=== PATIENT | male | born 1945 | race African-American/Black ===

== ENCOUNTER → 2016-11-15 | Outpatient (CLI) | payer MEDICARE, MEDICAID ==
[~2016-11-15] MED LIST: REGADENOSON 0.4 MG/5 ML IV ONE
== END | disposition home or self-care (01) ==
LOC: NM 07:09
DX: Z01.818 Encounter for other preprocedural examination (principal); I10 Essential (primary) hypertension; J44.9 Chronic obstructive pulmonary disease, unspecified; R00.0 Tachycardia, unspecified
CPT/HCPCS: 78452; 93017; A9500; J2785

== ENCOUNTER → 2016-11-23 | Outpatient (CLI) | payer MEDICARE, MEDICAID ==
[2016-11-23 13:43] LABS: BG BASE EXCESS -1.2 mmol/L (-2.0-2.0); BG CARBOXYHEMOGLOBIN 0.8 % (0.5-1.5); BG DEOXYHEMOGLOBIN 3.3 % (0.0-5.0); BG FRACTION INSPIRED OXYGEN 32; BG HCO3 ACT 22.2 mmol/L (22.0-26.0); BG METHEMOGLOBIN 0.2 % (0.0-1.5); BG OXYGEN SATURATION 96.7 % (92.0-98.5); BG OXYHEMOGLOBIN 95.7 % (94.0-97.0); BG PCO2 33.6 mmHg (35.0-45.0); BG PH 7.437 (7.350-7.450); BG PO2 83.5 mmHg (75.0-100.0); BG SAMPLE SITE RIGHT BRACHIAL; BG TOTAL HEMOGLOBIN 15.1 g/dL (12.0-18.0); BG VENT MODE NASAL CANNULA
== END | disposition home or self-care (01) ==
LOC: PF 13:08
PROVIDERS: ATTEND Specialist
DX: J44.9 Chronic obstructive pulmonary disease, unspecified (principal)
CPT/HCPCS: 36600; 82375; 82805

== ENCOUNTER 2021-04-20 16:12 | Inpatient (IN) | payer MEDICARE, MEDICAID ==
[~2021-04-20] VITALS: Ht 182.9 cm; Wt 64.0 kg
[~2021-04-20 16:12] MED LIST changes: +AMLO10TA80 MT; +ASPI-1497 PO; +OMEP40CA12 PO; +OXYC-105 PO; -REGADENOSON 0.4 MG/5 ML IV ONE; +ROFL500T MT; +SIMV10TA97 MT; +SITA100T11 MT
[2021-04-20] MEDS ORDERED: METHYLPREDNISOLONE SOD SUCC 125 MG/2 ML VIAL IV STA (16:34)
[2021-04-20] MEDS ORDERED: IPRATROPIUM BROMIDE (0.02%) 0.5MG/2.5ML NEB HHN STA (16:34)
[2021-04-20 17:10] LABS: BASOPHILS % 1.2 % (0.0-2.0); EOSINOPHILS % 1.2 % (0.0-5.0); HEMATOCRIT. 41.9 % (42.0-52.0); HEMOGLOBIN. 14.2 g/dL (14.0-18.0); LYMPHOCYTES % 10.4 % (20.0-50.0); MEAN CORPUSCULAR HEMOGLOBIN 28.3 pg (28.0-32.0); MEAN CORPUSCULAR VOLUME 83.6 fL (80.0-94.0); MEAN PLATELET VOLUME 8.3 fl (7.4-10.4); MONOCYTES % 7.3 % (2.0-8.0); NEUTROPHILS % 79.9 % (40.0-76.0); PLATELET 308 x1000/uL (130-400); RED BLOOD CELL COUNT 5.01 mill/uL (4.7-6.1); RED CELL DISTRIBUTION WIDTH 15.2 % (11.6-14.6)
[2021-04-20 17:16] LABS: CHLORIDE 106 mEq/L (98-107)
[2021-04-20] MEDS: ALBUTEROL (0.083%) 2.5MG/3ML NEB HHN SCH ×2 (17:22→17:23)
[2021-04-20] MEDS ORDERED: MAGNESIUM 2 G PREMIX 50 ML IV ONE (22:45)
[2021-04-20] MEDS ORDERED: MAGNESIUM 2 G PREMIX 50 ML IV SCH (23:45)
[2021-04-21] VITALS (10 sets, daily range): BP systolic 122–155; BP diastolic 72–114
[2021-04-21] MEDS ORDERED: ACETAMINOPHEN 325MG TABLET PO PRN ×2 (01:00)
[2021-04-21] MEDS ORDERED: CLONIDINE 0.1MG TABLET PO PRN (01:00)
[2021-04-21] MEDS ORDERED: PROMETHAZINE/DEXTROMETHORPHAN 6.25-15MG/5ML BOTTLE 120ML PO PRN (01:00)
[2021-04-21] MEDS ORDERED: DIPHENHYDRAMINE 50MG/ML VIAL IV PRN (01:00)
[2021-04-21] MEDS ORDERED: ONDANSETRON HCL 4MG/2ML INJ IV PRN (01:00)
[2021-04-21] MEDS ORDERED: ZOLPIDEM TARTRATE 5MG TABLET PO PRN (01:00)
[2021-04-21] MEDS ORDERED: IPRATROPIUM/ALBUTEROL 0.5-3(2.5)MG/3ML NEB HHN PRN (01:00)
[2021-04-21] MEDS ORDERED: MAGNESIUM/ALUMINUM HYDROXIDE/SIMETHICONE 30ML UDC PO PRN (01:00)
[2021-04-21] MEDS ORDERED: DEXTROSE 50% WATER 50ML SYRINGE IV PRN (01:00)
[2021-04-21] MEDS: IPRATROPIUM/ALBUTEROL 0.5-3(2.5)MG/3ML NEB HHN SCH ×4 (01:14→20:01)
[2021-04-21] MEDS: METHYLPREDNISOLONE SOD SUCC 40 MG/ML VIAL IV SCH ×4 (01:22→21:29)
[2021-04-21] MEDS: SODIUM CHLORIDE 0.9% INJ 3ML FLUSH IVF SCH ×3 (06:32→23:50)
[2021-04-21] MEDS: OMEPRAZOLE 20MG CAPSULE EXTENDED RELEASE PO SCH ×2 (06:34→20:29)
[2021-04-21] MEDS: BLOOD SUGAR DIAGNOSTIC STRIP TEST SCH ×4 (06:34→20:29)
[2021-04-21] MEDS: INSULIN LISPRO 100 UNITS/ML SUBCUT SCH ×4 (06:46→20:35)
[2021-04-21] MEDS ORDERED: AMLODIPINE 5MG TABLET PO SCH (09:00)
[2021-04-21] MEDS: BENAZEPRIL 10MG TABLET PO SCH (09:51)
[2021-04-21] MEDS: DOCUSATE SODIUM 100MG CAPSULE PO SCH ×2 (09:51→17:57)
[2021-04-21] MEDS: GUAIFENESIN 600MG ER TABLET PO SCH ×2 (09:51→20:29)
[2021-04-21] MEDS: ASPIRIN 81MG EC TABLET PO SCH (09:51)
[2021-04-21] MEDS: ENOXAPARIN 40MG/0.4ML SYR SUBCUT SCH (09:52)
[2021-04-21] MEDS: TAMSULOSIN HCL 0.4MG SR CAPSULE PO SCH (20:29)
[2021-04-21] MEDS: DILTIAZEM HCL 60MG TABLET PO SCH (21:29)
[2021-04-22] VITALS (12 sets, daily range): BP systolic 91–146; BP diastolic 62–88
[2021-04-22] MEDS: METHYLPREDNISOLONE SOD SUCC 40 MG/ML VIAL IV SCH ×3 (05:57→21:15)
[2021-04-22] MEDS: SODIUM CHLORIDE 0.9% INJ 3ML FLUSH IVF SCH ×3 (05:58→21:15)
[2021-04-22] MEDS: DILTIAZEM HCL 60MG TABLET PO SCH ×3 (05:58→21:15)
[2021-04-22] MEDS: OMEPRAZOLE 20MG CAPSULE EXTENDED RELEASE PO SCH (05:58)
[2021-04-22] MEDS: BLOOD SUGAR DIAGNOSTIC STRIP TEST SCH ×4 (05:58→20:06)
[2021-04-22] MEDS: INSULIN LISPRO 100 UNITS/ML SUBCUT SCH ×4 (07:20→20:30)
[2021-04-22] MEDS: DOCUSATE SODIUM 100MG CAPSULE PO SCH ×2 (09:00→17:00)
[2021-04-22] MEDS: ENOXAPARIN 40MG/0.4ML SYR SUBCUT SCH (09:00)
[2021-04-22 09:03] LABS: CHLORIDE 103 mEq/L (98-107)
[2021-04-22] MEDS: ASPIRIN 81MG EC TABLET PO SCH (09:04)
[2021-04-22] MEDS: GUAIFENESIN 600MG ER TABLET PO SCH ×2 (09:04→20:06)
[2021-04-22] MEDS: BENAZEPRIL 10MG TABLET PO SCH (09:05)
[2021-04-22] MEDS: IPRATROPIUM/ALBUTEROL 0.5-3(2.5)MG/3ML NEB HHN SCH ×4 (10:30→21:10)
[2021-04-22 10:58] LABS: BG BASE EXCESS 3.6 mmol/L (-2.0-2.0); BG CARBOXYHEMOGLOBIN 0.4 % (0.5-1.5); BG FRACTION INSPIRED OXYGEN 32; BG HCO3 ACT 26.7 mmol/L (22.0-26.0); BG METHEMOGLOBIN 0.2 % (0.0-1.5); BG OXYGEN SATURATION 87.9 % (92.0-98.5); BG OXYHEMOGLOBIN 87.4 % (94.0-97.0); BG PCO2 35.3 mmHg (35.0-45.0); BG PH 7.496 (7.350-7.450); BG PO2 47.7 mmHg (75.0-100.0); BG SAMPLE SITE RIGHT BRACHIAL; BG TOTAL HEMOGLOBIN 13.6 g/dL (12.0-18.0); BG VENT MODE NASAL CANNULA
[2021-04-22] MEDS: TAMSULOSIN HCL 0.4MG SR CAPSULE PO SCH (20:06)
[2021-04-22] MEDS: FAMOTIDINE 20MG TABLET PO SCH (20:06)
[2021-04-23] VITALS (10 sets, daily range): BP systolic 115–151; BP diastolic 66–84
[2021-04-23] MEDS: IPRATROPIUM/ALBUTEROL 0.5-3(2.5)MG/3ML NEB HHN SCH ×3 (01:30→11:16)
[2021-04-23] MEDS: METHYLPREDNISOLONE SOD SUCC 40 MG/ML VIAL IV SCH ×2 (05:52→14:32)
[2021-04-23] MEDS: DILTIAZEM HCL 60MG TABLET PO SCH ×2 (05:53→14:32)
[2021-04-23] MEDS: FAMOTIDINE 20MG TABLET PO SCH (05:53)
[2021-04-23] MEDS: BLOOD SUGAR DIAGNOSTIC STRIP TEST SCH ×3 (05:59→16:50)
[2021-04-23] MEDS: SODIUM CHLORIDE 0.9% INJ 3ML FLUSH IVF SCH ×2 (05:59→14:32)
[2021-04-23] MEDS: INSULIN LISPRO 100 UNITS/ML SUBCUT SCH ×3 (07:20→17:20)
[2021-04-23] MEDS: ENOXAPARIN 40MG/0.4ML SYR SUBCUT SCH (09:00)
[2021-04-23] MEDS: BENAZEPRIL 10MG TABLET PO SCH (09:27)
[2021-04-23] MEDS: GUAIFENESIN 600MG ER TABLET PO SCH (09:28)
[2021-04-23] MEDS: DOCUSATE SODIUM 100MG CAPSULE PO SCH ×2 (09:28→17:00)
[2021-04-23] MEDS: ASPIRIN 81MG EC TABLET PO SCH (09:28)
[2021-04-23 10:24] LABS: BG BASE EXCESS -1.2 mmol/L (-2.0-2.0); BG CARBOXYHEMOGLOBIN 1.1 % (0.5-1.5); BG DEOXYHEMOGLOBIN 1.8 % (0.0-5.0); BG FRACTION INSPIRED OXYGEN 32; BG METHEMOGLOBIN 0.4 % (0.0-1.5); BG OXYGEN SATURATION 98.2 % (92.0-98.5); BG OXYHEMOGLOBIN 96.7 % (94.0-97.0); BG PCO2 41.8 mmHg (35.0-45.0); BG PH 7.377 (7.350-7.450); BG PO2 107.6 mmHg (75.0-100.0); BG SAMPLE SITE RIGHT BRACHIAL; BG TOTAL HEMOGLOBIN 14.4 g/dL (12.0-18.0); BG VENT MODE NASAL CANNULA
== END 2021-04-23 19:08 | disposition home or self-care (01) | DRG 189 ==
LOC: ER 16:12 → MICUSO 23:31 → 3WST 04-21 04:28
PROVIDERS: ADMIT Internal Medicine; ATTEND Internal Medicine
PROC: 5A09357 Assistance with Respiratory Ventilation, Less than 24 Consecutive Hours, Continuous Positive Airway Pressure (ICD-10-PCS; principal; 2021-04-20)
DX: J96.21 Acute and chronic respiratory failure with hypoxia (principal); J44.1 Chronic obstructive pulmonary disease with (acute) exacerbation; E11.9 Type 2 diabetes mellitus without complications; I10 Essential (primary) hypertension; N40.0 Benign prostatic hyperplasia without lower urinary tract symptoms; Z20.822 Contact with and (suspected) exposure to COVID-19; Z99.81 Dependence on supplemental oxygen; Z85.528 Personal history of other malignant neoplasm of kidney; Z87.891 Personal history of nicotine dependence; Z90.5 Acquired absence of kidney; Z79.899 Other long term (current) drug therapy; Z79.82 Long term (current) use of aspirin
CPT/HCPCS: 36415; 36600; 71045; 80048; 80053; 82375; 82805; 82962; 83036; 83880; 84484; 85025; 87426; 93005; 94640; 94660; 99291; J1650; J1815; J2920; J2930; J3475